=== PATIENT | male | born 1995 | race Caucasian/White ===

== ENCOUNTER → 2019-11-18 | Outpatient (CLI) | payer BC ==
[2019-11-18 11:22] LABS: FREE T4 1.09 ng/dl (0.76-1.46); THYROID STIM HORMONE (HS) 3.19 uIU/ml (0.358-4.75)
== END | disposition home or self-care (01) ==
LOC: LAB 10:05
PROVIDERS: Pediatrics
DX: E03.9 Hypothyroidism, unspecified (principal)